=== PATIENT | male | born 1960 | race Caucasian/White ===

== ENCOUNTER 2023-09-18 11:00 | Outpatient (CLI) | payer OTHER | END 2023-09-18 11:01 | LOC: PET 11:00 | PROVIDERS: ATTEND Radiology Radiation Oncology | DX: C01 Malignant neoplasm of base of tongue (principal); J35.1 Hypertrophy of tonsils | CPT/HCPCS: 78815; A9552 ==

== ENCOUNTER 2024-04-16 12:35 | Outpatient (CLI) | payer OTHER | END 2024-04-16 12:36 | disposition home or self-care (01) | LOC: CT 12:35 | PROVIDERS: ATTEND Radiology Radiation Oncology | DX: C01 Malignant neoplasm of base of tongue (principal); R59.0 Localized enlarged lymph nodes; I70.90 Unspecified atherosclerosis; R91.1 Solitary pulmonary nodule; J92.9 Pleural plaque without asbestos; I25.10 Atherosclerotic heart disease of native coronary artery without angina pectoris; M47.819 Spondylosis without myelopathy or radiculopathy, site unspecified; K76.89 Other specified diseases of liver | CPT/HCPCS: 70491; 71260; 82565 ==

== ENCOUNTER 2024-10-28 08:53 | Outpatient (CLI) | payer MEDICARE, OTHER | END 2024-10-28 08:54 | disposition home or self-care (01) | LOC: CT 08:53 | PROVIDERS: ATTEND Radiology Radiation Oncology | DX: C01 Malignant neoplasm of base of tongue (principal) | CPT/HCPCS: 70491; 71260; 82565 ==